=== PATIENT | male | born 1955 | race American Indian/Alaskan Native ===

== ENCOUNTER 2016-11-05 11:03 | Outpatient (CLI) | payer OTHER ==
--- NOTE | 2016-11-05 13:56 | Ultrasound Report ---
Renal sonogram: History: Chronic kidney disease. Findings: The right kidney measures 10.4 x 5.3 x 6.1 cm. Cortical thickness 1.4 cm. Left kidney measures 8.8 x 5.2 x 6.7 cm. Cortical thickness 2.2 cm. Cyst in the left kidney measures 1.8 x 2 x 2.3 cm. Impression: Cyst left kidney.
== END 2016-11-05 11:04 | disposition home or self-care (01) ==
LOC: US 11:03
PROVIDERS: ATTEND Internal Medicine Nephrology
DX: N18.3 Chronic kidney disease, stage 3 (moderate) (principal); N28.1 Cyst of kidney, acquired
CPT/HCPCS: 76770

== ENCOUNTER 2017-01-29 11:30 | Outpatient (CLI) | payer OTHER ==
--- NOTE | 2017-01-29 12:11 | XRay Report ---
RIGHT SHOULDER RADIOGRAPHS INDICATION: Right shoulder pain. COMPARISON: None similar. FINDINGS: Frontal and Y views of the right shoulder, 3 projections demonstrate normal humeral head contour, well positioned against the glenoid. Normal acromioclavicular joint. Preserved scapular contour. Normal visualized soft tissues, right ribs and lung. CONCLUSION: No acute right shoulder radiographic abnormality, as described. Possible osteopenia. Thank you for the opportunity to participate in this patient's care.
== END 2017-01-29 11:31 | disposition home or self-care (01) ==
LOC: XRAY 11:30
PROVIDERS: ATTEND Internal Medicine
DX: Z02.71 Encounter for disability determination (principal); M25.511 Pain in right shoulder

== ENCOUNTER 2017-02-17 09:58 | Outpatient (CLI) | payer OTHER ==
[~2017-02-17 09:58] MED LIST: PROVENTIL IH ONE
== END 2017-02-17 09:59 | disposition home or self-care (01) ==
LOC: PF 09:58
PROVIDERS: ATTEND Internal Medicine
DX: I12.9 Hypertensive chronic kidney disease with stage 1 through stage 4 chronic kidney disease, or unspecified chronic kidney disease (principal); N18.3 Chronic kidney disease, stage 3 (moderate); E11.22 Type 2 diabetes mellitus with diabetic chronic kidney disease; N17.9 Acute kidney failure, unspecified; M75.50 Bursitis of unspecified shoulder; M10.9 Gout, unspecified; J43.9 Emphysema, unspecified
CPT/HCPCS: 94060; 94640

== ENCOUNTER 2017-12-06 08:59 | Emergency (ER) | payer BC, OTHER ==
[2017-12-06] MEDS ORDERED: ASPIRIN PO ONE (09:24)
[2017-12-06 10:18] LABS: Hemoglobin 10.5 gm/dl (11.8-15.2); Mean Corpuscular HGB Conc 33 % (32-34); Mean Corpuscular Hemoglobin 29 pg (28-32); Mean Corpuscular Volume 88 fl (84-94); Platelet Count 238 K/mm3 (140-440); Red Blood Count 3.64 M/mm3 (3.65-5.03); Red Cell Distribution Width 15.2 % (13.2-15.2)
[2017-12-06 10:21] LABS: BUN/Creatinine Ratio 7; Blood Urea Nitrogen 14 mg/dL (9-20); Hemolysis Index 9
[2017-12-06 11:15] LABS: Basophils % (Manual) 0 % (0.0-1.8); RBC Morphology Normal; Total Cells Counted 100
[2017-12-06] MEDS ORDERED: MOTRIN ONE (15:20)
[2017-12-06] MEDS ORDERED: MOTRIN PO ONE (15:34)
[2017-12-06] MEDS ORDERED: CATAPRES ONE (16:21)
[2017-12-06] MEDS ORDERED: CATAPRES PO ONE (16:22)
[2017-12-06 16:24] VITALS: BP 208/100
--- NOTE | 2017-12-06 16:37 | Emergency Department Report ---
ED Extremity Problem HPI - General Chief complaint: Extremity Injury, Lower Stated complaint: BILATERAL FOOT PAIN Time Seen by Provider: 12/06/17 14:33 Source: patient Mode of arrival: Ambulatory Limitations: No Limitations - History of Present Illness MD Complaint: extremity pain (Bilateral ankle pain for 1 week duration, gradually worsening, worse with movement. He has h/o arthritis and gout but he is not on any gout flare up prevention medication. He denies injuries but he admits to standing on feet for long periods of time for the last 3 weeks. He works in a bakery.) Severity scale (0 -10): 5 - Related Data Allergies Allergy/AdvReac Type Severity Reaction Status Date / Time SEAFOOD AdvReac THROAT Uncoded 11/05/16 11:04 Swelling/ CAN NOT BREATHE ED Review of Systems ROS: Stated complaint: BILATERAL FOOT PAIN Other details as noted in HPI Constitutional: denies: chills, fever Eyes: denies: eye pain, eye discharge, vision change ENT: denies: ear pain, throat pain Respiratory: denies: cough, shortness of breath, wheezing Cardiovascular: denies: chest pain, palpitations Endocrine: no symptoms reported Gastrointestinal: denies: abdominal pain, nausea, diarrhea Genitourinary: denies: urgency, dysuria Musculoskeletal: arthralgia. denies: back pain, joint swelling Skin: denies: rash, lesions Neurological: denies: headache, weakness, paresthesias Psychiatric: denies: anxiety, depression Hematological/Lymphatic: denies: easy bleeding, easy bruising ED Past Medical Hx - Past Medical History Previous Medical History?: Yes Hx Hypertension: Yes Hx Diabetes: Yes Hx COPD: Yes Additional medical history: Gout - Surgical History Past Surgical History?: No - Social History Smoking Status: Current Some Day Smoker Substance Use Type: None ED Physical Exam - General Limitations: No Limitations General appearance: alert, in no apparent distress - Head Head exam: Present: atraumatic, normocephalic - Eye Eye exam: Present: normal appearance - ENT ENT exam: Present: mucous membranes moist - Neck Neck exam: Present: normal inspection - Respiratory Respiratory exam: Present: normal lung sounds bilaterally. Absent: respiratory distress - Cardiovascular Cardiovascular Exam: Present: regular rate, normal rhythm. Absent: systolic murmur, diastolic murmur, rubs, gallop - GI/Abdominal GI/Abdominal exam: Present: soft, normal bowel sounds - Rectal Rectal exam: Present: deferred - Extremities Exam Extremities exam: Present: normal inspection - Expanded Lower Extremity Exam Left Upper Leg exam: Present: normal inspection Knee exam: Present: normal inspection Lower Leg exam: Present: normal inspection Ankle exam: Present: full ROM, tenderness Right Hip exam: Present: normal inspection Upper Leg exam: Present: normal inspection Knee exam: Present: normal inspection Lower Leg exam: Present: normal inspection Ankle exam: Present: full ROM, tenderness - Back Exam Back exam: Present: normal inspection - Neurological Exam Neurological exam: Present: alert, oriented X3 - Psychiatric Psychiatric exam: Present: normal affect, normal mood - Skin Skin exam: Present: warm, dry, intact, normal color. Absent: rash ED Course Vital Signs 12/06/17 12/06/17 12/06/17 09:17 15:23 15:24 Temperature 98 F 97.4 F L Pulse Rate 60 58 L Respiratory 18 59 H 9 L Rate Blood Pressure 189/91 Blood Pressure 167/104 [Right] O2 Sat by Pulse 96 100 Oximetry 12/06/17 16:23 Temperature Pulse Rate 60 Respiratory Rate Blood Pressure 208/100 Blood Pressure [Right] O2 Sat by Pulse Oximetry ED Medical Decision Making - Lab Data Result diagrams: 12/06/17 09:56 12/06/17 09:56 Critical care attestation.: If time is entered above; I have spent that time in minutes in the direct care of this critically ill patient, excluding procedure time. ED Disposition Clinical Impression: Ankle pain Qualifiers: Chronicity: acute Laterality: bilateral Qualified Code(s): M25.571 - Pain in right ankle and joints of right foot; M25.572 - Pain in left ankle and joints of left foot; M25.572 - Pain in left ankle and joints of left foot Disposition: [id number] LEFT AGAINST MED ADVICE Is pt being admited?: No Does the pt Need Aspirin: No Condition: Stable Instructions: Arthralgia (ED) Referrals: DONELL BUSBY MD [Primary Care Provider] - 3-5 Days Time of Disposition: 16:30
== END 2017-12-06 16:49 | disposition left against medical advice (07) ==
LOC: ED 08:59
DX: M25.572 Pain in left ankle and joints of left foot (principal); M25.571 Pain in right ankle and joints of right foot; M10.9 Gout, unspecified; J44.9 Chronic obstructive pulmonary disease, unspecified; E11.9 Type 2 diabetes mellitus without complications; I10 Essential (primary) hypertension; F17.200 Nicotine dependence, unspecified, uncomplicated; Z91.013 Allergy to seafood
CPT/HCPCS: 36415; 80048; 83880; 84484; 84550; 85007; 85025; 93005; 93010; 99284